=== PATIENT | male | born 1975 | race Caucasian/White ===

== ENCOUNTER 2019-03-28 12:46 | Emergency (ER) | payer MEDICAID, OTHER ==
[~2019-03-28] VITALS: Ht 175.3 cm; Wt 85.8 kg
[2019-03-28 12:50] VITALS: Ht 175.3 cm; Wt 85.8 kg
[2019-03-28] MEDS ORDERED: KETOROLAC 60 MG INJ IM STA (13:49)
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
[2019-03-28] MEDS ORDERED: TIZANIDINE 4 MG TAB PO ONE (14:00)
[2019-03-28] MEDS ORDERED: METHOCARBAMOL 750 MG TAB PO ONE (14:00)
[2019-03-28] MEDS ORDERED: IBUP-1545 PO (14:02)
[2019-03-28] MEDS ORDERED: TIZA4TAB PO (14:02)
[2019-03-28 14:14] VITALS: BP 124/71; PULSE 71; RESP 18
== END 2019-03-28 14:16 | disposition home or self-care (01) ==
LOC: FTE 12:46
DX: S80.212A Abrasion, left knee, initial encounter (principal); M62.838 Other muscle spasm; V49.40XA Driver injured in collision with unspecified motor vehicles in traffic accident, initial encounter
CPT/HCPCS: J1885; Z7610; 96372